=== PATIENT | female | born 1940 | race Asian ===

== ENCOUNTER 2022-06-08 18:24 | Inpatient (IN) | payer MEDICARE, OTHER ==
[~2022-06-08] VITALS: Ht 154.9 cm; Wt 45.7 kg
[2022-06-08] MEDS ORDERED: APIX2.5T PO (18:36)
[2022-06-08] MEDS ORDERED: LEVO50 PO (18:37)
[2022-06-08] MEDS ORDERED: AMLO-257 PO (18:37)
[2022-06-08] MEDS ORDERED: ATOR10TA84 PO (18:37)
[2022-06-08] MEDS ORDERED: LOSA-381 PO (18:37)
[2022-06-08] MEDS ORDERED: IOHEXOL 350 MG/ML 100 ML VIAL ONE (19:40)
[2022-06-08] MEDS ORDERED: SODIUM CHLORIDE 0.9% 100 ML ONE (19:40)
[2022-06-08 20:08] LABS: BASOPHILS % (AUTO) 0.3 % (0.0-2.0); EOSINOPHILS % (AUTO) 1.8 % (1.0-6.0); HEMOGLOBIN 11.6 g/dL (12.0-16.0); LYMPHOCYTES # (AUTO) 1.7 K/uL (1.0-4.8); LYMPHOCYTES % (AUTO) 24.5 % (22.0-44.0); MEAN CORPUSCULAR HEMOGLOBIN 19.2 pg (26.0-34.0); MEAN CORPUSCULAR HGB CONC 31.3 G/dL (31.0-37.0); MEAN CORPUSCULAR VOLUME 61 fL (80-100); MONOCYTES # (AUTO) 0.5 K/uL (0.1-1.0); MONOCYTES % (AUTO) 6.9 % (2.0-9.0); NEUTROPHILS # (AUTO) 4.7 K/uL (1.8-7.7); NEUTROPHILS % (AUTO) 66.5 % (40.0-70.0); PLATELET COUNT (AUTO) 405 K/uL (150-450); RED BLOOD CELL COUNT(AUTO) 6.04 MIL/uL (4.00-5.20); RED CELL DISTRIBUTION WIDTH 15.5 % (11.5-14.5)
[2022-06-08 20:08] LABS: COVID AG,FIA SOURCE NASOPHARYNGEAL
[2022-06-08 20:17] LABS: ANION GAP 7 mmol/L (8-16); CALCIUM, TOTAL 9.6 mg/dL (8.8-10.5); CARBON DIOXIDE 31 mmol/L (22-29); CHLORIDE 99 mmol/L (98-107); CREATININE 0.95 mg/dL (0.60-1.30); GLUCOSE,RANDOM 127 mg/dL (70-110); POTASSIUM 3.9 mmol/L (3.5-5.1); SODIUM SERUM 137 mmol/L (136-145); UREA NITROGEN, BLOOD 21 mg/dL (7-18)
[2022-06-08 20:22] LABS: PLATELET MORPHOLOGY COMMENT LARGE PLTS PRESENT
[2022-06-08 20:23] LABS: ALANINE AMINOTRANSFERASE 295 U/L (12-78); ALBUMIN 3.1 g/dL (3.4-5.0); ALKALINE PHOSPHATASE 161 U/L (46-116); ASPARTATE AMINOTRANSFERASE 269 U/L (15-37); BILIRUBIN,TOTAL 0.5 mg/dL (0.1-1.0); CREATINE KINASE, TOTAL ONLY 38 U/L (26-192); TOTAL PROTEIN, SERUM 7.7 g/dL (6.4-8.2)
[2022-06-08 20:24] LABS: D-DIMER 1.93 mg/L FEU (0.00-0.50); GLOMERULAR FILTR. RATE CALC 56 mL/min (>60); PROTHROMBIN TIME 10.8 SEC (9.4-11.6)
[2022-06-08 20:26] LABS: PATHOLOGY REVIEW, DIFF YES
[2022-06-08 20:31] LABS: B-TYPE NATRIURETIC PEPTIDE 566 pg/mL (0-100)
[2022-06-08 20:34] LABS: INFLUENZA TYPE A NEGATIVE FOR TYPE A (NEGATIVE); INFLUENZA TYPE B NEGATIVE FOR TYPE B (NEGATIVE)
[2022-06-08 22:00] LABS: ACETAMINOPHEN < 2 mcg/mL (10-30)
[2022-06-08] MEDS ORDERED: SODIUM CHLORIDE 0.9% 500 ML IV ONE (22:00)
[2022-06-08] MEDS ORDERED: 0.9% SODIUM CHLORIDE 10 ML SYRINGE IVP PRN (23:00)
[2022-06-08] MEDS ORDERED: ONDANSETRON HCL 4 MG/2 ML VIAL IVP PRN ×2 (23:00→23:30)
[2022-06-08] MEDS ORDERED: ACETAMINOPHEN 325 MG TABLET PO PRN ×2 (23:00→23:30)
[2022-06-08] MEDS ORDERED: PIPERACILLIN SODIUM/TAZOBACTAM 2.25 GM in DEXTROSE 5%-WATER 50 ML IV ONE (23:15)
[2022-06-08] MEDS ORDERED: IPRATROPIUM BROMIDE 0.5 MG/2.5 ML NEB SOLUTION NEB PRN (23:30)
[2022-06-08] MEDS ORDERED: ALBUTEROL SULFATE 2.5 MG/0.5 ML NEB SOLUTION NEB PRN (23:30)
[2022-06-08] MEDS ORDERED: PIPERACILLIN/TAZO 3.375 GM/D5W 50 ML IV ONE (23:45)
[2022-06-09] MEDS: PIPERACILLIN/TAZO 3.375 GM/D5W 50 ML IV SCH ×4 (05:44→23:20)
[2022-06-09] MEDS: LEVOTHYROXINE SODIUM 50 MCG TABLET PO SCH ×2 (06:30→09:15)
[2022-06-09] MEDS ORDERED: OLOP5DRO25 OU (06:50)
[2022-06-09] MEDS: LOSARTAN POTASSIUM 25 MG TABLET PO SCH ×2 (08:12→09:15)
[2022-06-09] MEDS: AmLODIPine BESYLATE 5 MG TABLET PO SCH ×2 (08:12→09:15)
[2022-06-09] MEDS ORDERED: ATORVASTATIN CALCIUM 10 MG TABLET PO SCH (09:00)
[2022-06-09] MEDS: APIXABAN 2.5 MG TABLET PO SCH ×2 (09:42→20:13)
[2022-06-09 11:50] VITALS: BP 155/81
[2022-06-09] MEDS ORDERED: SODIUM CHLORIDE 0.9% 100 ML ONE (12:56)
[2022-06-09 15:34] VITALS: BP 122/64
[2022-06-09 20:20] VITALS: BP 148/61
[2022-06-10 00:31] VITALS: BP 134/50
[2022-06-10 04:53] VITALS: BP 115/68
[2022-06-10] MEDS: LEVOTHYROXINE SODIUM 50 MCG TABLET PO SCH (05:59)
[2022-06-10] MEDS: PIPERACILLIN/TAZO 3.375 GM/D5W 50 ML IV SCH (05:59)
[2022-06-10 07:30] VITALS: BP 128/68
[2022-06-10] MEDS: AmLODIPine BESYLATE 5 MG TABLET PO SCH (08:43)
[2022-06-10] MEDS: APIXABAN 2.5 MG TABLET PO SCH (08:43)
[2022-06-10 10:32] VITALS: BP 117/68
[2022-06-10] MEDS ORDERED: LOSA25TA2 PO (14:00)
[2022-06-10] MEDS ORDERED: CEPH-558 PO (14:00)
[2022-06-10] MEDS ORDERED: CLIN300C58 PO (14:00)
[2022-06-10] MEDS ORDERED: ATORVASTATIN CALCIUM 10 MG TABLET PO SCH (21:00)
[2022-06-10] MEDS ORDERED: LOSARTAN POTASSIUM 25 MG TABLET PO SCH (21:00)
== END 2022-06-10 15:43 | disposition home or self-care (01) | DRG 177 ==
LOC: EMS 18:27 → 5N 06-09 10:53
PROVIDERS: ADMIT Internal Medicine; ATTEND Internal Medicine
DX: J69.0 Pneumonitis due to inhalation of food and vomit (principal); E43 Unspecified severe protein-calorie malnutrition; I48.20 Chronic atrial fibrillation, unspecified; Z68.1 Body mass index [BMI] 19.9 or less, adult; E03.9 Hypothyroidism, unspecified; Z20.822 Contact with and (suspected) exposure to COVID-19; R74.01 Elevation of levels of liver transaminase levels; E78.00 Pure hypercholesterolemia, unspecified; E87.6 Hypokalemia; I10 Essential (primary) hypertension; R79.89 Other specified abnormal findings of blood chemistry; K21.9 Gastro-esophageal reflux disease without esophagitis; K80.20 Calculus of gallbladder without cholecystitis without obstruction; R13.10 Dysphagia, unspecified; Z79.01 Long term (current) use of anticoagulants; Z86.16 Personal history of COVID-19; Z79.899 Other long term (current) drug therapy
CPT/HCPCS: 71045; 71275; 74177; 76700; 80053; 82550; 83036; 83880; 84484; 85025; 85379; 85610; 85730; 87040; 87081; 87804; 92610; 93005; 99285; G0481; J2543; J7040; J7050; J7060; Q9967; 36415-L1; 36415-TC; G0480